=== PATIENT | female | born 1960 | race Caucasian/White ===

== ENCOUNTER 2017-11-22 06:11 | Day surgery (SDC) | payer OTHER ==
[~2017-11-22 06:11] MED LIST: Buffered Lidocaine 0.9% SYRIN* 5 ML/SYR SYRINGE INTRADERM ONE; Dexamethasone IV* 4 MG/ML 1 ML (4 MG) IV SLOW PU ONE; Famotidine IV* 10 MG/ML 2 ML (20 mg) IV ONE
[2017-11-22] MEDS ORDERED: Dexamethasone IV* 4 MG/ML 1 ML (4 MG) ONE (06:18)
[2017-11-22] MEDS ORDERED: Famotidine IV* 10 MG/ML 2 ML (20 mg) ONE (06:18)
[2017-11-22] MEDS ORDERED: Clindamycin 900 MG/D5W BAG(*) 900 MG/50 ML BAG IVPB ONE (06:18)
[2017-11-22] MEDS ORDERED: Morphine VIAL* 10 MG/ML 1 ML VIAL ONE (06:56)
[2017-11-22] MEDS ORDERED: Bupivacaine 0.5% SDV PF* 30ML VIAL ONE (06:57)
[2017-11-22] MEDS ORDERED: Lidocain 1% EPI 1:100,000 * 30 ML MDV ONE (06:57)
[2017-11-22] MEDS ORDERED: Lidocaine 1% MPF wEPI 200,000* 30 ML SDV ONE (06:58)
[2017-11-22] MEDS ORDERED: Midazolam* 1 MG/ML 5 ML VIAL (5 MG) ONE (07:24)
[2017-11-22] MEDS ORDERED: fentaNYL* 50 MCG/ML 2 ML VIAL (100 MCG VIAL) ONE ×2 (07:24→08:06)
[2017-11-22] MEDS ORDERED: Propofol* 10 MG/ML 20 ML BTL IV PUSH ONE ×2 (07:25→08:30)
[2017-11-22] MEDS ORDERED: Phenylephrine INJ* 10 MG/ML 1 ML VIAL (10 MG) ONE (07:45)
[2017-11-22] MEDS ORDERED: EPHEDrine (Pressors)* 50 MG/ML VIAL ONE (07:46)
[2017-11-22] MEDS ORDERED: Scopolamine 1.5 mg* PATCH TRANSDERM PRN (08:08)
[2017-11-22] MEDS ORDERED: Naloxone* 0.4 MG/ML 1 ML VIAL IV PRN (08:08)
[2017-11-22] MEDS ORDERED: fentaNYL* 50 MCG/ML 2 ML VIAL (100 MCG VIAL) IV PRN (08:08)
[2017-11-22] MEDS ORDERED: DiMENhydriNATE IV* 50 MG/ML VIAL IV PUSH PRN (08:08)
[2017-11-22] MEDS ORDERED: oxyCODONE/Acetamin 5/325 MG* TAB PO PRN (08:08)
[2017-11-22] MEDS ORDERED: Ondansetron INJ* 2 MG/ML VIAL IV PRN (08:08)
[2017-11-22 10:27] VITALS: BP 113/78
--- NOTE | 2017-11-24 02:32 | OP ---
CC: ISABELA [facility] OPERATIVE REPORT: DATE OF OPERATION: 11/22/17 DATE OF : 62 SURGEON: Orion Naranjo MD SET UP AND LAY OUT INSPECTOR: Jeanne Heredia NP PRE-OP DIAGNOSIS: Left upper back lipoma. POST-OP DIAGNOSIS: Left upper back lipoma. OPERATIVE PROCEDURE: Excision of multilobular lipomatous tissue from the left upper back. ESTIMATED BLOOD LOSS: Less than 50 cc. FLUIDS: Crystalloid. SPECIMEN: Lipomas. DRAINS: #7 TYRESE drain left in the cavity. COMPLICATIONS: After dressing the wound and removing the drapes, it appeared that additional lipomat ous material was not removed and we prepped the area and reentered for completion. DESCRIPTION OF PROCEDURE: Mr. Omer was identified in the preoperative area, back lesion identified again and she was marked. Brought to the operating room, placed in a right lateral decubitus positio n. Gentle sedation was given. The patient had SCDs on bilateral lower extremities. She was given a dose of antibiotics. The upper back area was prepped and draped in standard surgical fashion and a time-out was performed. Injected lidocaine along the purposed incision site as well as around the lipoma. Once this was perfo rmed, we made an incision, deepened this to the subcutaneous tissue and identified large lipoma. Thi s was freed up both bluntly and sharply and was removed from the incision. Additional dissection pos teriorly was carried out to clear it off all together. This was all removed, then noted an area medi al to this. This lipoma was similarly removed with both blunt and sharp dissection. This extended u p superiorly and portion of this subcutaneous fat was brought into the incision site thinking that th ere was going to be a lipoma at this site. Wound was not seen discretely and it should be noted that none of the lipomas were firm or very well circumscribed. The second lipoma was passed off as an ad ditional specimen. I then evaluated the wound and felt that we were pulling the subcutaneous fat fro m the axilla and this did not represent lipoma and this was returned into the incision with the still good blood supply. We stayed above the trapezius muscle throughout and there was no evidence of ble eding. Hemostasis was excellent and a #7 TYRESE drain was brought in through a separate stab incision an d placed into the cavity. Defect was reapproximated with 3-0 Polysorb followed by 4- 0 Monocryl subc uticular sutures, followed by Steri-strips and sterile dressing. The drains were removed and it was apparent that there was additional lipoma more superior than where we had dissected, because of this, the area was prepped again with Betadine at this time. After rem oval of the dressing and the Steri-strips, TYRESE drain was left in placed and taken off suction. The ar ea was draped and additional time-out was performed. I opened up the incision and then enlarged the incision superiorly. The subcutaneous fat that we had been dealing with was brought up through the incision and this was retracted more inferiorly until I was able to identify another separate lipoma. This was removed in its entirety with both blunt and sharp dissection, was well circumscribed. Additional, area was noted more medially and we were able to dissect yet another lipoma from this site. These were all again large non-firm and not that well circumscribed with not much of the capsule. The wound was then irrigated. Hemostasis was achieved. The TYRESE drain had been remained within the ca vity during the dissection and was not bothersome. It was remained laid into the incision. We then reapproximated the skin edges with the skin armen at this time, because of the enlargement of the i ncision. Sterile dressing was applied. The patient tolerated the procedure well, was transferred to PACU in stable condition. [id number] #: [id number]
== END 2017-11-22 10:40 | disposition home or self-care (01) ==
LOC: OR 06:11
PROVIDERS: ATTEND Surgery
DX: D17.1 Benign lipomatous neoplasm of skin and subcutaneous tissue of trunk (principal); Z87.891 Personal history of nicotine dependence
CPT/HCPCS: 88304; J1100; J2001; J2250; J2270; J2704; J3010